=== PATIENT | male | born 1995 | race Caucasian/White ===

== ENCOUNTER 2021-09-11 06:45 | Day surgery (SDC) | payer BC ==
[~2021-09-11] VITALS: Ht 180.3 cm; Wt 89.0 kg
[~2021-09-11 06:45] MED LIST: ACET500T68 PO; ALPRAZolam 0.5 MG TABLET PO PRN; HYDROmorphone 2 MG/ML INJ. IVP PRN; IBUP-1027 PO; INUL2TAB4 PO; IV RINGERS,LACTATED 1000ML 1,000 ML IV SCH; MORPHINE SULFATE 2 MG/ML INJ. IVP PRN; PROCHLORPERAZINE 10 MG/2 ML VIAL. IVP PRN; fentaNYL PF VIAL 100 MCG/2 ML VIAL IVP PRN
[2021-09-11] MEDS ORDERED: ceFAZolin 2GM PREMIX 2 GM/50 ML BAG IV ONE (07:00)
[2021-09-11 07:16] VITALS: BP 137/61
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
[2021-09-11] MEDS ORDERED: MIDAZOLAM HCL/PF 2 MG/2 ML VIAL. IV ONE (08:30)
[2021-09-11] MEDS ORDERED: MIDAZOLAM HCL/PF 2 MG/2 ML VIAL. ONE (08:40)
[2021-09-11] MEDS ORDERED: SEVOFLURANE 61 TO 120 MINUTES. IH ONE (09:56)
[2021-09-11] MEDS ORDERED: ONDANSETRON PF 4 MG/2 ML VIAL. ONE (09:56)
[2021-09-11] MEDS ORDERED: PROPOFOL 10 MG/ML (20ML) VIAL. IV ONE ×2 (09:56→10:44)
[2021-09-11] MEDS ORDERED: BUPIVACAINE MPF 0.25% 30 ML VIAL. ONE (09:56)
[2021-09-11] MEDS ORDERED: fentaNYL PF VIAL 100 MCG/2 ML VIAL ONE ×3 (09:56→12:35)
[2021-09-11] MEDS ORDERED: DEXAMETHASONE SOD PHOS 4 MG/ML VIAL ONE (09:56)
[2021-09-11] MEDS ORDERED: LIDOCAINE 2% PF 5 ML VIAL. ONE (09:56)
[2021-09-11] MEDS ORDERED: BUPIVACAINE MPF 0.25% 30 ML VIAL. INJ ONE (10:42)
[2021-09-11] MEDS ORDERED: oxyCODONE/APAP 5/325 1 TAB TABLET PO ONE (11:45)
[2021-09-11] MEDS ORDERED: ACETAMINOPHEN 325 MG TABLET. PO ONE (11:45)
--- NOTE | 2021-09-11 11:47 | PDOC4 ---
OPERATIVE NOTE Date: Date: Sep 11, 2021 Pre-Op Diagnosis: Isolated, minimally displaced medial malleolus fracture, left Post-Op Diagnosis: Same as above Procedure Performed: Medial malleolus fracture ORIF, left Surgeon: Donna Flynn DPM Anesthesia Type: General Blood Loss: 5 cc Specimans Obtained: None Findings: Transverse medial malleolus fracture, minimally displaced with periosteum invaginated into the fracture. The lateral talar dome was found intact without any OCD, left. Patient consented for surgery with the goals of anatomic repair, fracture site apposition and therefore faster osseous bridging and healing and early weightbearing. Complications: None Operative Note: Under mild sedation, patient was brought into the operating room and placed on an operating table in a supine position. Following a formal timeout, patient's identity, procedure and procedure sites were confirmed. Following IV prophylactic antibiotics, general anesthesia, a well-padded thigh tourniquet was placed to the left lower extremity. Then the left lower extremity was then scrubbed, prepped and draped using standard aseptic techniques. An Esmarch was used to exsanguinate the left foot and ankle and tourniquet was inflated to 250 millimercury. Then, the attention was directed to the medial left ankle where a standard linear incision was performed. Incision was carried deep using sharp and blunt dissection down to level of periosteum which was then incised. Care was taken to retract all the neurovascular bundles and all bleeders were cauterized as needed. Fracture was identified transverse on the medial malleolus. All in terposed periosteum was reflected and resected. The medial talar dome was found intact without any OCD lesions. The posterior tibial tendon was identified and protected throughout the procedure. Fracture site was reduced with a dental pick. Intraoperatively, the fracture site was well aligned and anterior colliculus fracture was reduced. Using standard AO technique, a fully threaded 3.5 millimeter screw with a washer, and a partially-threaded 4.0 millimeter screw were used to affix and stabilize the medial fragment. Final imaging were taken to verify position and length of the hardware which appeared adequate and ankle mortise was anatomical. Intraoperative syndesmotic stress test was performed was negative for instability or medial gutter diastases. The surgical sites were irrigated with copious saline solution. They were then closed in layers with 4 Monocryl and 4-0 nylon. Then the surgical sites were anesthetized with 5 cc of 0.25% Marcaine plain. The sites were dressed with Xeroform, 4 x 4, ABD. The left lower extremity was then immobilized in a modified Montoya compression splint with ankle held near 90 degrees. Then the tourniquet was deflated and adequate digital perfusion was noted. Patient tolerated the procedure and anesthesia well and then transferred to PACU for continuous recovery. DONNA FLYNN DPM Sep 11, 2021 11:47
[2021-09-11] MEDS ORDERED: MORPHINE SULFATE 2 MG/ML INJ. ONE (12:22)
[2021-09-11] MEDS: MORPHINE SULFATE 2 MG/ML INJ. IVP PRN ×2 (12:23→12:34)
[2021-09-11] MEDS: fentaNYL PF VIAL 100 MCG/2 ML VIAL IVP PRN ×2 (12:37→13:22)
[2021-09-11 13:50] VITALS: BP 132/62
== END 2021-09-11 14:20 | disposition home or self-care (01) ==
LOC: SURG 06:45
PROVIDERS: ATTEND Podiatrist
DX: S82.52XA Displaced fracture of medial malleolus of left tibia, initial encounter for closed fracture (principal); F41.9 Anxiety disorder, unspecified; Z79.899 Other long term (current) drug therapy; Z98.890 Other specified postprocedural states; Z79.4 Long term (current) use of insulin; X58.XXXA Exposure to other specified factors, initial encounter; Y93.89 Activity, other specified; Y92.89 Other specified places as the place of occurrence of the external cause; Y99.8 Other external cause status
CPT/HCPCS: 27766; A4209; A4930; A6223; A6253; A6402; A6449; A6450; C1713; J0690; J1100; J2250; J2270; J2405; J2704; J3010; J3490; 76000; A6455